=== PATIENT | female | born 1975 | race Caucasian/White ===

== ENCOUNTER 2021-01-01 08:00 | Outpatient (CLI) | payer OTHER | END 2021-01-01 08:30 | disposition home or self-care (01) | LOC: PPH VACUNA 08:00 | PROVIDERS: ATTEND Emergency Medicine Pediatric Emergency Medicine | DX: Z23 Encounter for immunization (principal) ==

== ENCOUNTER 2023-02-09 12:07 | Emergency (ER) | payer OTHER ==
[~2023-02-09] VITALS: Ht 162.6 cm; Wt 48.5 kg
[2023-02-09] MEDS ORDERED: AMLODIPINE-OLM1 EAC2 (12:25)
[2023-02-09] MEDS ORDERED: ZOVIA PO (12:25)
== END 2023-02-09 13:14 | disposition home or self-care (01) ==
LOC: ER 12:07
DX: M76.62 Achilles tendinitis, left leg (principal); Z88.6 Allergy status to analgesic agent; Z88.0 Allergy status to penicillin

== ENCOUNTER 2023-02-13 07:12 | Emergency (ER) | payer OTHER ==
[~2023-02-13] VITALS: Ht 162.6 cm; Wt 48.5 kg
[~2023-02-13 07:12] MED LIST: AMLODIPINE-OLM1 EAC2; ZOVIA PO
== END 2023-02-13 09:12 | disposition home or self-care (01) ==
LOC: ER 07:12
DX: M76.62 Achilles tendinitis, left leg (principal); Z88.6 Allergy status to analgesic agent; Z88.0 Allergy status to penicillin

== ENCOUNTER 2023-03-03 08:11 | Outpatient (CLI) | payer OTHER | END 2023-03-03 08:13 | disposition home or self-care (01) | LOC: SONOGRAMA 08:11 | DX: M76.62 Achilles tendinitis, left leg (principal) ==

== ENCOUNTER 2023-03-06 10:55 | Outpatient (CLI) | payer OTHER | END 2023-03-06 10:56 | disposition home or self-care (01) | LOC: NUCLEAR 10:55 | DX: M65.871 Other synovitis and tenosynovitis, right ankle and foot (principal); E55.9 Vitamin D deficiency, unspecified; F33.9 Major depressive disorder, recurrent, unspecified; E88.09 Other disorders of plasma-protein metabolism, not elsewhere classified; F41.9 Anxiety disorder, unspecified; I10 Essential (primary) hypertension; K29.60 Other gastritis without bleeding; K59.01 Slow transit constipation; K64.0 First degree hemorrhoids; K64.4 Residual hemorrhoidal skin tags; K66.0 Peritoneal adhesions (postprocedural) (postinfection); N80.9 Endometriosis, unspecified; N20.0 Calculus of kidney; M79.643 Pain in unspecified hand; M60.9 Myositis, unspecified; M25.529 Pain in unspecified elbow; M54.50 Low back pain, unspecified; M41.30 Thoracogenic scoliosis, site unspecified; M06.4 Inflammatory polyarthropathy; R07.89 Other chest pain; Z57.5 Occupational exposure to toxic agents in other industries; U07.1 COVID-19; N83.291 Other ovarian cyst, right side; M76.62 Achilles tendinitis, left leg ==